=== PATIENT | female | born 1970 | race Two or more races ===

== ENCOUNTER 2019-12-22 22:01 | Inpatient (IN) | payer MEDICARE, OTHER ==
[~2019-12-22] VITALS: Ht 167.6 cm; Wt 122.2 kg
[2019-12-22 23:11] LABS: Eosinophils # (auto) 0.5 10 ^3/uL (0-0.8); Hemoglobin 11.5 g/dL (12.2-16.2); Monocytes # (auto) 0.8 10 ^3/uL (0-1.3); Monocytes % (auto) 8.2 % (0.0-12.0)
[2019-12-22 23:12] LABS: Basophils # (auto) 0.1 10 ^3/uL (0-0.2); Basophils % (auto) 0.8 % (0.0-2.0); Eosinophils % (auto) 5.6 % (0.0-7.0); Hematocrit 37.1 % (36.0-46.0); Mean Corpuscular Hemoglobin 23.6 pg (28.0-32.0); Mean Corpuscular Volume 76.2 fL (80.0-100.0); Neutrophils % (auto) 64.4 % (37.0-80.0); Nucleated Red Blood Cells % 0.1 %; Platelet Count (auto) 425 10^3/uL (140-450); Red Blood Cells 4.87 10^6/uL (4.0-5.20); White Blood Cell 9.4 10^3/uL (4.4-10.8)
[2019-12-22 23:28] LABS: INR 0.99 (0.9-1.15); Partial Thromboplastin Time 25.1 sec (23.64-32.05)
[2019-12-22] MEDS ORDERED: LORazepam 2MG/ML-1ML VIAL IM ONE (23:30)
[2019-12-22 23:32] LABS: Alanine Aminotransferase 28 U/L (13-56); Anion Gap 6 (5-15); Aspartate Aminotransferase 18 U/L (15-37); BUN/Creatinine Ratio 9.9; Blood Alcohol < 3.0 mg/dL (0-5); Blood Urea Nitrogen 7 mg/dL (7-18); Calcium 8.2 mg/dL (8.5-10.1); Carbon Dioxide 24 mmol/L (21-32); Chloride 110 mmol/L (98-107); GFR African American 113 mL/min; GFR Non-African American 94 mL/min; Glucose 133 mg/dL (74-106); Magnesium 2.3 mg/dL (1.6-2.6); Potassium 3.3 mmol/L (3.5-5.1); Sodium 140 mmol/L (136-145)
[2019-12-22] MEDS ORDERED: LORazepam 2MG/ML-1ML VIAL ONE (23:34)
[2019-12-22 23:38] LABS: Alkaline Phosphatase 101 U/L (45-117); Bilirubin, Total 0.2 mg/dL (0.2-1.0); Total Protein 7.7 g/dL (6.4-8.2)
[2019-12-23 01:18] LABS: Urine Bacteria NONE SEEN /hpf (None Seen); Urine Blood Negative /uL (Negative); Urine Mucus FEW (None Seen); Urine Specific Gravity 1.025 (1.001-1.035); Urine WBC 2 /hpf (0 - 5)
[2019-12-23 01:27] LABS: Alcohol, Urine < 3.0 mg/dL (0-5); Amphetamine Screen, Urine NEGATIVE (NEGATIVE); Barbiturate Scree,Urine NEGATIVE (NEGATIVE); Benzodiazephine Screen, Urine NEGATIVE (NEGATIVE); Cannabinoid Screen, Urine NEGATIVE (NEGATIVE); Cocaine Screen, Urine NEGATIVE (NEGATIVE); Opiate Scree,Urine NEGATIVE (NEGATIVE); Phencyclidine Screen, Urine NEGATIVE (NEGATIVE)
[2019-12-23] MEDS ORDERED: BUPR150T6 PO (01:41)
[2019-12-23] MEDS ORDERED: SUMA100T15 (01:41)
[2019-12-23] MEDS ORDERED: GABA300C10 PO (01:41)
[2019-12-23] MEDS ORDERED: CYCL-611 PO (01:41)
[2019-12-23] MEDS ORDERED: BACL10TA PO (01:41)
[2019-12-23] MEDS ORDERED: ATE50T PO (01:41)
[2019-12-23] MEDS ORDERED: DOCUSATE SOD 100 MG CAP PO PRN (05:45)
[2019-12-23] MEDS ORDERED: HYDROcodone-ACET 5/325MG TAB PO PRN (05:45)
[2019-12-23] MEDS ORDERED: ONDANSETRON HCL 4 MG/2 ML VIAL IV PRN (05:45)
[2019-12-23] MEDS ORDERED: DEXTROSE (50%) 50ML SYRG IV PRN (05:45)
[2019-12-23] MEDS ORDERED: MORPHINE SULFATE 4 MG/ML SYR/VIAL IV PRN (05:45)
[2019-12-23 07:44] LABS: Eosinophils # (auto) 0.2 10 ^3/uL (0-0.8); Hemoglobin 10.9 g/dL (12.2-16.2); Lymphocytes # (auto) 2.1 10 ^3/uL (0.4-5.4); Neutrophils % (auto) 69.1 % (37.0-80.0); Platelet Count (auto) 414 10^3/uL (140-450)
[2019-12-23 07:45] LABS: Basophils # (auto) 0 10 ^3/uL (0-0.2); Basophils % (auto) 0.4 % (0.0-2.0); Eosinophils % (auto) 2.4 % (0.0-7.0); Hematocrit 34.2 % (36.0-46.0); Lymphocytes % (auto) 22.3 % (10.0-50.0); Mean Corpuscular Hemoglobin 24.1 pg (28.0-32.0); Mean Corpuscular Hgb Conc. 31.8 g/dL (32.0-36.0); Mean Corpuscular Volume 75.8 fL (80.0-100.0); Monocytes # (auto) 0.5 10 ^3/uL (0-1.3); Monocytes % (auto) 5.8 % (0.0-12.0); Neutrophils # (auto) 6.4 10 ^3/uL (1.6-8.6); Red Blood Cells 4.51 10^6/uL (4.0-5.20); Red Cell Distribution Width 17.6 % (11.8-14.3); White Blood Cell 9.3 10^3/uL (4.4-10.8)
[2019-12-23] MEDS: SODIUM CHLORIDE 0.9% 1,000 ML IV SCH ×4 (07:48→23:05)
[2019-12-23] MEDS: InsuLIN REG 1unit/0.01ml Soln (100units/ml) SC SCH ×4 (08:00→23:28)
[2019-12-23] MEDS: ACCU-CHEK COMFORT CURVE STRIP VI SCH ×4 (08:00→21:00)
[2019-12-23 08:05] LABS: Calcium 8.2 mg/dL (8.5-10.1); Potassium 3.9 mmol/L (3.5-5.1)
[2019-12-23 08:07] LABS: BUN/Creatinine Ratio 8.8
[2019-12-23 08:15] VITALS: BP 155/100
[2019-12-23] MEDS: ACETAMINOPHEN 325 MG TAB PO PRN ×2 (08:59→16:07)
[2019-12-23] MEDS ORDERED: METH2.5T3 PO (09:16)
[2019-12-23] MEDS ORDERED: OMEP20TA PO (09:22)
[2019-12-23] MEDS: PATIENTS OWN MEDICATION (Bupropion Hcl (Bupropion Hcl Xl) 300 MG) PO SCH (10:35)
[2019-12-23] MEDS: BACLOFEN 10 MG TAB PO SCH (10:35)
[2019-12-23] MEDS ORDERED: GADOTERIDOL 279.3mg/mL 20ml Vial IV ONE (12:44)
[2019-12-23] MEDS ORDERED: LORazepam 2MG/ML-1ML VIAL IV PRN (12:45)
[2019-12-23 13:00] VITALS: BP 152/108
[2019-12-23] MEDS: GABAPENTIN 300 MG CAP PO SCH ×2 (15:48→22:30)
[2019-12-23] MEDS: ATENOLOL 50 MG TAB PO SCH ×2 (15:55→22:30)
[2019-12-23 17:09] VITALS: BP 153/96
[2019-12-23 22:34] VITALS: BP 112/63
[2019-12-24] VITALS (7 sets, daily range): BP systolic 119–130; BP diastolic 72–78
[2019-12-24] MEDS: ACCU-CHEK COMFORT CURVE STRIP VI SCH ×6 (00:20→20:00)
[2019-12-24] MEDS: ACETAMINOPHEN 325 MG TAB PO PRN (00:21)
[2019-12-24] MEDS: SODIUM CHLORIDE 0.9% 1,000 ML IV SCH ×5 (01:31→21:31)
[2019-12-24] MEDS: InsuLIN REG 1unit/0.01ml Soln (100units/ml) SC SCH ×6 (04:00→20:00)
[2019-12-24] MEDS: GABAPENTIN 300 MG CAP PO SCH ×3 (06:08→22:42)
[2019-12-24] MEDS: ATENOLOL 50 MG TAB PO SCH ×3 (06:09→22:43)
[2019-12-24] MEDS: PATIENTS OWN MEDICATION (Bupropion Hcl (Bupropion Hcl Xl) 300 MG) PO SCH (10:00)
[2019-12-24] MEDS: BACLOFEN 10 MG TAB PO SCH (10:09)
[2019-12-24] MEDS: NORTRIPTYLINE HCL 10 MG CAP PO SCH (22:00)
[2019-12-24] MEDS ORDERED: NORTRIPTYLINE HCL 10 MG CAP ONE (22:44)
[2019-12-25] MEDS: InsuLIN REG 1unit/0.01ml Soln (100units/ml) SC SCH ×6 (04:00→21:52)
[2019-12-25] MEDS: ACCU-CHEK COMFORT CURVE STRIP VI SCH ×6 (04:00→21:50)
[2019-12-25] MEDS: SODIUM CHLORIDE 0.9% 1,000 ML IV SCH ×4 (04:45→17:31)
[2019-12-25 05:36] VITALS: BP 126/85
[2019-12-25] MEDS: GABAPENTIN 300 MG CAP PO SCH ×3 (06:19→21:45)
[2019-12-25] MEDS: ATENOLOL 50 MG TAB PO SCH ×3 (06:21→21:46)
[2019-12-25 08:00] VITALS: BP 120/78
[2019-12-25] MEDS: BACLOFEN 10 MG TAB PO SCH (08:34)
[2019-12-25 09:00] VITALS: BP 159/86
[2019-12-25] MEDS: PATIENTS OWN MEDICATION (Bupropion Hcl (Bupropion Hcl Xl) 300 MG) PO SCH (10:00)
[2019-12-25 11:43] LABS: Folate (Folic Acid) 10.91 ng/mL (5.38-24)
[2019-12-25 13:00] VITALS: BP 129/95
[2019-12-25 17:00] VITALS: BP 125/80
[2019-12-25] MEDS ORDERED: AMIT PO (17:02)
[2019-12-25] MEDS ORDERED: MORPHINE SULF INJ 2 MG/ML SYRINGE 1ML IV PRN (17:15)
[2019-12-25 21:23] VITALS: BP 130/76
[2019-12-25] MEDS: ACETAMINOPHEN 325 MG TAB PO PRN (21:49)
[2019-12-25] MEDS: NORTRIPTYLINE HCL 10 MG CAP PO SCH (21:53)
[2019-12-26] MEDS: SODIUM CHLORIDE 0.9% 1,000 ML IV SCH ×4 (00:45→13:31)
[2019-12-26] MEDS: ACCU-CHEK COMFORT CURVE STRIP VI SCH ×5 (01:29→16:00)
[2019-12-26] MEDS: InsuLIN REG 1unit/0.01ml Soln (100units/ml) SC SCH ×5 (04:00→16:00)
[2019-12-26 05:07] VITALS: BP 140/77
[2019-12-26] MEDS: ATENOLOL 50 MG TAB PO SCH ×2 (05:33→11:50)
[2019-12-26] MEDS: GABAPENTIN 300 MG CAP PO SCH ×2 (05:34→11:43)
[2019-12-26 08:00] VITALS: BP 132/85
[2019-12-26 08:42] VITALS: BP 132/85
[2019-12-26] MEDS: BACLOFEN 10 MG TAB PO SCH (09:49)
[2019-12-26] MEDS: PATIENTS OWN MEDICATION (Bupropion Hcl (Bupropion Hcl Xl) 300 MG) PO SCH (09:54)
[2019-12-26 12:57] VITALS: BP 120/71
[2019-12-26 16:21] VITALS: BP 120/71
== END 2019-12-26 18:15 | disposition home or self-care (01) | DRG 71 ==
LOC: EDBD 22:01 → ER 22:03 → TELE 22:04 → WEST WING 12-23 08:00 → TELE-WESTW 12-23 08:02
PROVIDERS: ADMIT Hospitalist; ATTEND Family Medicine
DX: G93.41 Metabolic encephalopathy (principal); Z68.41 Body mass index [BMI] 40.0-44.9, adult; T50.905A Adverse effect of unspecified drugs, medicaments and biological substances, initial encounter; Z82.49 Family history of ischemic heart disease and other diseases of the circulatory system; G35 Multiple sclerosis; G43.B0 Ophthalmoplegic migraine, not intractable; F32.9 Major depressive disorder, single episode, unspecified; G89.29 Other chronic pain; M54.9 Dorsalgia, unspecified; E11.65 Type 2 diabetes mellitus with hyperglycemia; E86.0 Dehydration; Z79.899 Other long term (current) drug therapy; Z81.8 Family history of other mental and behavioral disorders; Z82.3 Family history of stroke; Z82.5 Family history of asthma and other chronic lower respiratory diseases; Z82.0 Family history of epilepsy and other diseases of the nervous system; I10 Essential (primary) hypertension; E66.01 Morbid (severe) obesity due to excess calories
CPT/HCPCS: 36415; 51702; 70450; 70553; 71045; 72142; 80048; 80053; 80307; 80320; 81001; 81025; 82607; 82746; 82962; 83036; 83735; 84443; 84484; 85025; 85610; 85730; 93005; 95819; 96372; 97116; 97163; 97530; G0378; J1815